=== PATIENT | male | born 1975 | race Caucasian/White ===

== ENCOUNTER 2017-03-06 00:37 | Emergency (ER) | payer OTHER ==
[2017-03-06] MEDS ORDERED: Sodium Chloride 0.9% 10 ML Syringe FLUSH PRN (00:49)
[2017-03-06] MEDS ORDERED: Sodium Chloride 0.9% 2.5 ML Syringe FLUSH PRN (00:49)
[2017-03-06 00:50] VITALS: BP 143/96
[2017-03-06] MEDS ORDERED: Sodium Chloride 0.9% 1,000 ML IV ONE (00:53)
[2017-03-06] MEDS ORDERED: Aspirin 81 MG Tab.Chew PO ONE (00:55)
--- NOTE | 2017-03-06 00:56 | EDM.PDOC ---
ED HPI GENERAL MEDICAL PROBLEM - General Chief Complaint: Chest Pain Stated Complaint: CHEST PAINS Time Seen by Provider: 03/06/17 00:56 - History of Present Illness INITIAL COMMENTS - FREE TEXT/NARRATIVE: HISTORY AND PHYSICAL: History of present illness: Patient 41-year-old white male presents with concern chest pain 3 weeks he denies social sutures breath palpitations diaphoresis nausea vomiting or other concern Review of systems: As per history of present illness and below otherwise all systems reviewed and negative. Past medical history: As per history of present illness and as reviewed below otherwise noncontributory. Surgical history: As per history of present illness and as reviewed below otherwise noncontributory. Social history: No reported history of drug or alcohol abuse. Family history: As per history of present illness and as reviewed below otherwise noncontributory. Physical exam: HEENT: Atraumatic, normocephalic, pupils reactive, negative for conjunctival pallor or scleral icterus, mucous membranes moist, throat clear, neck supple, nontender, trachea midline. Lungs: Clear to auscultation, breath sounds equal bilaterally, chest nontender. Heart: S1S2, regular, negative for clicks, rubs, or JVD. Abdomen: Soft, nondistended, nontender. Negative for masses or hepatosplenomegaly. Negative for costovertebral tenderness. Pelvis: Stable nontender. Genitourinary: Deferred. Rectal: Deferred. Extremities: Atraumatic, negative for cords or calf pain. Neurovascular unremarkable. Neuro: Awake, alert, oriented. Cranial nerves II through XII unremarkable. Cerebellum unremarkable. Motor and sensory unremarkable throughout. Exam nonfocal. Diagnostics: CBC CMP PT/INR troponin BNP chest x-ray EKG Therapeutics: IV O2 monitor Impression: #1 chest pain Definitive disposition and diagnosis as appropriate pending reevaluation and review of above. chest Pain Score (Numeric/FACES): 3 - Related Data Allergies Allergy/AdvReac Type Severity Reaction Status Date / Time No Known Allergies Allergy Verified 03/06/17 00:40 Home Meds: Home Meds . [No Known Home Meds] 11/27/15 [History] Past Medical History - Past Health History Medical/Surgical History: Denies Medical/Surgical History Cardiovascular History: Reports: Hypertension, Other (See Below) Other Cardiovascular History: told begiining of Heart failure in 2011. - Past Surgical History GI Surgical History: Reports: Hernia, Inguinal Social & Family History - Family History Family Medical History: Noncontributory - Tobacco Use Smoking Status *Q: Never Smoker Years of Tobacco use: 16 Packs/Tins Daily: 0.5 Used Tobacco, but Quit: No - Alcohol Use Days Per Week of Alcohol Use: 2 Number of Drinks Per Day: 2 Total Drinks Per Week: 4 - Recreational Drug Use Recreational Drug Use: No ED ROS GENERAL - Review of Systems Review Of Systems: ROS reveals no pertinent complaints other than HPI. ED EXAM, GENERAL - Physical Exam Exam: See Below (See dictation) Course - Vital Signs Last Recorded V/S: Last Vital Signs Temp 37.7 C 03/06/17 00:37 Pulse 94 03/06/17 00:37 Resp 18 03/06/17 00:37 BP 143/96 H 03/06/17 00:37 Pulse Ox 98 03/06/17 00:37 - Orders/Labs/Meds Orders: Active Orders 24 hr Category Date Time Status Cardiac Monitoring [RC] . DIRECTED Care 03/06/17 00:49 Active EKG Documentation Completion [RC] STAT Care 03/06/17 00:49 Active Oxygen Therapy [RC] ASDIRECTED Care 03/06/17 00:49 Active Chest 1V Frontal [CR] Stat Exams 03/06/17 00:49 Ordered B-TYPE NATRIURETIC PEPTIDE,BNP [CHEM] Stat Lab 03/06/17 00:46 Received CBC WITH AUTO DIFF [HEME] Stat Lab 03/06/17 00:46 Received COMPREHENSIVE METABOLIC PN,CMP [CHEM] Stat Lab 03/06/17 00:46 Received INR,PT,PROTHROMBIN TIME [COAG] Stat Lab 03/06/17 00:54 Ordered TROPONIN I [CHEM] Stat Lab 03/06/17 00:46 Received UA W/MICROSCOPIC [URIN] Stat Lab 03/06/17 00:49 Uncollected Sodium Chloride 0.9% [Normal Saline] 1,000 ml Med 03/06/17 00:53 Active IV STAT Sodium Chloride 0.9% [Saline Flush] Med 03/06/17 00:49 Active 10 ml FLUSH ASDIRECTED PRN Sodium Chloride 0.9% [Saline Flush] Med 03/06/17 00:49 Active 2.5 ml FLUSH ASDIRECTED PRN Saline Lock Insert [OM.PC] Stat Oth 03/06/17 00:49 Ordered Medication Orders Sodium Chloride (Normal Saline) 1,000 mls @ 999 mls/hr IV STAT ONE Stop: 03/06/17 01:53 Sodium Chloride (Saline Flush) 10 ml FLUSH ASDIRECTED PRN PRN Reason: Keep Vein Open Sodium Chloride (Saline Flush) 2.5 ml FLUSH ASDIRECTED PRN PRN Reason: Keep Vein Open Meds: Medications Generic Name Dose Route Start Last Admin Trade Name [place] PRN Reason Stop Dose Admin Sodium Chloride 1,000 mls @ 999 mls/hr 03/06/17 00:53 Normal Saline IV 03/06/17 01:53 STAT ONE Sodium Chloride 10 ml 03/06/17 00:49 Saline Flush FLUSH ASDIRECTED PRN Keep Vein Open Sodium Chloride 2.5 ml 03/06/17 00:49 Saline Flush FLUSH ASDIRECTED PRN Keep Vein Open Departure - Departure Time of Disposition: 00:55 Disposition: Home, Self-Care 01 Condition: Good Clinical Impression: Atypical chest pain - Discharge Information Referrals: PCP,None [Primary Care Provider] - Additional Instructions: The following information is given to patients seen in the emergency department who are being discharged to home. This information is to outline your options for follow-up care. We provide all patients seen in our emergency department with a follow-up referral. The need for follow-up, as well as the timing and circumstances, are variable depending upon the specifics of your emergency department visit. If you don't have a primary care physician on staff, we will provide you with a referral. We always advise you to contact your personal physician following an emergency department visit to inform them of the circumstance of the visit and for follow-up with them and/or the need for any referrals to a consulting specialist. The emergency department will also refer you to a specialist when appropriate. This referral assures that you have the opportunity for followup care with a specialist. All of these measure are taken in an effort to provide you with optimal care, which includes your followup. Under all circumstances we always encourage you to contact your private physician who remains a resource for coordinating your care. When calling for followup care, please make the office aware that this follow-up is from your recent emergency room visit. If for any reason you are refused follow-up, please contact the [facility] emergency department at and asked to speak to the emergency department charge nurse. JASMYNE [facility] [address] [place] [id number] Follow-up primary medical doctor and/or clinic above is discussed to return as needed as discussed - My Orders Last 24 Hours: My Active Orders 03/06/17 00:46 B-TYPE NATRIURETIC PEPTIDE,BNP [CHEM] Stat CBC WITH AUTO DIFF [HEME] Stat COMPREHENSIVE METABOLIC PN,CMP [CHEM] Stat TROPONIN I [CHEM] Stat 03/06/17 00:49 Cardiac Monitoring [RC] . DIRECTED EKG Documentation Completion [RC] STAT Oxygen Therapy [RC] ASDIRECTED Chest 1V Frontal [CR] Stat UA W/MICROSCOPIC [URIN] Stat Sodium Chloride 0.9% [Saline Flush] 10 ml FLUSH ASDIRECTED PRN Sodium Chloride 0.9% [Saline Flush] 2.5 ml FLUSH ASDIRECTED PRN Saline Lock Insert [OM.PC] Stat 03/06/17 00:53 Sodium Chloride 0.9% [Normal Saline] 1,000 ml IV STAT 03/06/17 00:54 INR,PT,PROTHROMBIN TIME [COAG] Stat - Assessment/Plan Last 24 Hours: My Active Orders 03/06/17 00:46 B-TYPE NATRIURETIC PEPTIDE,BNP [CHEM] Stat CBC WITH AUTO DIFF [HEME] Stat COMPREHENSIVE METABOLIC PN,CMP [CHEM] Stat TROPONIN I [CHEM] Stat 03/06/17 00:49 Cardiac Monitoring [RC] . DIRECTED EKG Documentation Completion [RC] STAT Oxygen Therapy [RC] ASDIRECTED Chest 1V Frontal [CR] Stat UA W/MICROSCOPIC [URIN] Stat Sodium Chloride 0.9% [Saline Flush] 10 ml FLUSH ASDIRECTED PRN Sodium Chloride 0.9% [Saline Flush] 2.5 ml FLUSH ASDIRECTED PRN Saline Lock Insert [OM.PC] Stat 03/06/17 00:53 Sodium Chloride 0.9% [Normal Saline] 1,000 ml IV STAT 03/06/17 00:54 INR,PT,PROTHROMBIN TIME [COAG] Stat
[2017-03-06 01:18] LABS: CHLORIDE,CL 106 mmol/L (98-110); SODIUM,NA 140 mmol/L (136-146)
--- NOTE | 2017-03-06 15:50 | CR ---
EXAM DATE: 03/06/17 PATIENT'S AGE: 41 Patient: AISHA GARCIA Facility: [place], [place] Site . Site : [id number] Study: XRay Chest [id number]/19/2017 1:08:51 AM Ordering Physician: Dede Richter Final Report: Indication: Chest pain Technique: Chest 1 view Comparison: None Findings/Impression: Cardiovascular and mediastinum: Heart size and vasculature are normal in caliber and appearance. Mediastinum is within normal limits. Lungs and pleural space: Lungs are clear. No sign of infiltrate or mass. No sign of pleural effusion. No pneumothorax. Bones and soft tissues: No significant findings. Dictated by Diana Bradley MD @ Mar 06 2017 1:10AM (Electronic Signature) Report Signed by Proxy. JOSÉ MIGUEL
== END 2017-03-06 02:30 | disposition home or self-care (01) ==
LOC: MW.ED 00:37
DX: R07.89 Other chest pain (principal); I11.0 Hypertensive heart disease with heart failure; I50.9 Heart failure, unspecified
CPT/HCPCS: 36415; 71010; 80053; 81001; 83880; 84484; 85025; 85610; 93005; 96360; 99285; A9270; J7040; 99283

== ENCOUNTER 2024-02-15 11:25 | Emergency (ER) | payer SELFPAY ==
[2024-02-15] MEDS: Sodium Chloride 0.9% 1,000 ML IV ONE ×2 (12:30)
[2024-02-15] MEDS: Sodium Chloride 0.9% 2.5 ML Syringe FLUSH PRN (12:30)
[2024-02-15] MEDS: Sodium Chloride 0.9% 10 ML Syringe FLUSH PRN (12:30)
[2024-02-15 12:42] LABS: HEMATOCRIT 42.5 % (42.0-52.0); HEMOGLOBIN 14.6 g/dL (14.0-18.0); MEAN CORPUSCULAR HEMOGLOBIN 29.3 pg (28.0-32.0); MEAN CORPUSCULAR HGB CONC 34.4 g/dL (32.0-36.0); MEAN CORPUSCULAR VOLUME 85.3 fL (83.0-99.0); MEAN PLATELET VOLUME 8.8 fL (9.4-12.4); PLATELET COUNT,PLT 482 K/uL (150-400); RED BLOOD CELL COUNT 4.98 M/uL (4.52-5.90); WHITE BLOOD CELL COUNT,WBC 9.52 K/uL (3.9-11.3)
[2024-02-15 12:57] LABS: BAND ABSOLUTE MAN 0.29; BAND PERCENT MAN 3 %; LYMPHOCYTES ABSOLUTE MAN 2.76 K/uL (1.00-4.80); LYMPHOCYTES PERCENT MAN 29 % (24-44); SEG NEUTROPHILS ABSOLUTE MAN 4.76 K/uL (1.80-7.70); SEG NEUTROPHILS PERCENT MAN 50 % (41-71)
[2024-02-15 12:58] LABS: BASOPHILS ABSOLUTE MAN 0.19 K/uL (0.00-0.20); BASOPHILS PERCENT MAN 2 % (0-1); EOSINOPHILS ABSOLUTE MAN 0.19 K/uL (0.00-0.45); EOSINOPHILS PERCENT MAN 2 % (0-6); MONOCYTES ABSOLUTE MAN 1.33 K/uL (0.00-0.80); MONOCYTES PERCENT MAN 14 % (0-8)
[2024-02-15 13:13] LABS: A/G RATIO 0.6 (0.9-1.6); BILIRUBIN TOTAL 0.4 mg/dL (0.2-1.0); CALCIUM 9.6 mg/dL (8.5-10.1); CARBON DIOXIDE,CO2 26.8 mmol/L (21.0-32.0); CREATININE 0.8 mg/dL (0.8-1.3); EST CRCL DRUG DOSING (CG) 126.64 mL/min; POTASSIUM,K 3.9 mmol/L (3.5-5.1); PROTEIN TOTAL,TP 7.7 g/dL (6.4-8.2)
[2024-02-15] MEDS: Iopamidol 755 MG/ML 500 ML Multipack Bottle IVPUSH STA (13:43)
[2024-02-15 15:28] VITALS: BP 139/88
[2024-02-15 16:00] VITALS: PULSE 88
== END 2024-02-15 15:59 | disposition home or self-care (01) ==
LOC: MW.ED 11:25
DX: K52.9 Noninfective gastroenteritis and colitis, unspecified (principal); I11.0 Hypertensive heart disease with heart failure; I50.9 Heart failure, unspecified; Z79.899 Other long term (current) drug therapy; Z75.8 Other problems related to medical facilities and other health care
CPT/HCPCS: 36415; 74177; 80053; 83690; 85025; 87324; 96360; 99284; J3490; J7030; Q9967

== ENCOUNTER 2024-03-02 20:17 | Emergency (ER) | payer BC ==
[2024-03-02 20:45] LABS: HEMATOCRIT 38.8 % (42.0-52.0); HEMOGLOBIN 13.3 g/dL (14.0-18.0); MEAN CORPUSCULAR HGB CONC 34.3 g/dL (32.0-36.0); MEAN CORPUSCULAR VOLUME 84.7 fL (83.0-99.0); MEAN PLATELET VOLUME 8.2 fL (9.4-12.4); PLATELET COUNT,PLT 1003 K/uL (150-400); RED BLOOD CELL COUNT 4.58 M/uL (4.52-5.90); WHITE BLOOD CELL COUNT,WBC 12.51 K/uL (3.9-11.3)
[2024-03-02 21:01] LABS: BLOOD UREA NITROGEN,BUN 7 mg/dL (7.0-18.0); CALCIUM 9.1 mg/dL (8.5-10.1); CARBON DIOXIDE,CO2 27.9 mmol/L (21.0-32.0); CHLORIDE,CL 97 mmol/L (98-107); GLUCOSE RANDOM 124 mg/dL (74-106); POTASSIUM,K 4.3 mmol/L (3.5-5.1); SODIUM,NA 133 mmol/L (136-148)
[2024-03-02 21:15] LABS: ESTIMATED GFR 94 mL/min (>60)
[2024-03-02 21:23] LABS: BAND ABSOLUTE MAN 0.13; BAND PERCENT MAN 1 %; BASOPHILS PERCENT MAN 0 % (0-1); EOSINOPHILS PERCENT MAN 0 % (0-6); LYMPHOCYTES ABSOLUTE MAN 2.63 K/uL (1.00-4.80); LYMPHOCYTES PERCENT MAN 21 % (24-44); MONOCYTES ABSOLUTE MAN 2.63 K/uL (0.00-0.80); MONOCYTES PERCENT MAN 21 % (0-8); SEG NEUTROPHILS ABSOLUTE MAN 7.13 K/uL (1.80-7.70); SEG NEUTROPHILS PERCENT MAN 57 % (41-71)
[2024-03-02] MEDS: Sodium Chloride 0.9% 1,000 ML IV ONE (21:59)
[2024-03-02] MEDS: Hydrocortisone Sodium Succinate 100 MG/2 ML SDV IVPUSH ONE (23:07)
[2024-03-02] MEDS: Hydrocortisone Sodium Succinate 250 MG/2 ML SDV IV ONE (23:10)
[2024-03-02 23:52] VITALS: BP 128/75; PULSE 107
== END 2024-03-02 23:51 | disposition home or self-care (01) ==
LOC: MW.ED 20:17
DX: K52.9 Noninfective gastroenteritis and colitis, unspecified (principal); I10 Essential (primary) hypertension; E78.00 Pure hypercholesterolemia, unspecified
CPT/HCPCS: 36415; 71045; 80048; 85025; 86850; 86900; 86901; 96361; 96374; 99283; J1720; J7030

== ENCOUNTER 2024-03-14 15:25 | Emergency (ER) | payer BC ==
[2024-03-14] MEDS ORDERED: Sodium Chloride 0.9% 2.5 ML Syringe FLUSH PRN (15:42)
[2024-03-14] MEDS ORDERED: Sodium Chloride 0.9% 10 ML Syringe FLUSH PRN (15:42)
[2024-03-14 16:14] LABS: BASOPHILS ABSOLUTE AUTO 0.07 K/uL (0.00-0.20); BASOPHILS PERCENT AUTO 0.6 % (0.0-1.0); EOSINOPHILS ABSOLUTE AUTO 0.15 K/uL (0.00-0.45); EOSINOPHILS PERCENT AUTO 1.3 % (0.0-6.0); HEMATOCRIT 36.6 % (42.0-52.0); HEMOGLOBIN 12.3 g/dL (14.0-18.0); IMMATURE GRAN ABSOLUTE AUTO 0.07 K/uL (0.00-0.05); IMMATURE GRAN PERCENT AUTO 0.6 % (0.0-0.4); LYMPHOCYTES ABSOLUTE AUTO 2.66 K/uL (1.00-4.80); LYMPHOCYTES PERCENT AUTO 22.8 % (24.0-44.0); MEAN CORPUSCULAR HEMOGLOBIN 28.8 pg (28.0-32.0); MEAN CORPUSCULAR HGB CONC 33.6 g/dL (32.0-36.0); MEAN CORPUSCULAR VOLUME 85.7 fL (83.0-99.0); MEAN PLATELET VOLUME 8.8 fL (9.4-12.4); MONOCYTES ABSOLUTE AUTO 1.13 K/uL (0.00-0.80); MONOCYTES PERCENT AUTO 9.7 % (0.0-8.0); NEUTROPHILS ABSOLUTE AUTO 7.58 K/uL (1.80-7.70); PLATELET COUNT,PLT 694 K/uL (150-400); RED BLOOD CELL COUNT 4.27 M/uL (4.52-5.90); WHITE BLOOD CELL COUNT,WBC 11.66 K/uL (3.9-11.3)
[2024-03-14 16:20] LABS: INR 1.03 (0.86-1.11)
[2024-03-14] MEDS: Sodium Chloride 0.9% 1,000 ML IV STA (16:37)
[2024-03-14 16:39] LABS: A/G RATIO 0.6 (0.9-1.6); ALBUMIN 2.5 g/dL (3.4-5.0); BILIRUBIN TOTAL 0.3 mg/dL (0.2-1.0); CALCIUM 8.4 mg/dL (8.5-10.1); CREATININE 1.1 mg/dL (0.8-1.3); EST CRCL DRUG DOSING (CG) 92.1 mL/min; POTASSIUM,K 4.1 mmol/L (3.5-5.1); PROTEIN TOTAL,TP 6.4 g/dL (6.4-8.2)
[2024-03-14] MEDS: Hydrocortisone Sodium Succinate 100 MG/2 ML SDV IVPUSH ONE (17:57)
[2024-03-14 18:50] VITALS: BP 122/76; PULSE 96
== END 2024-03-14 19:03 | disposition home or self-care (01) ==
LOC: MW.ED 15:25
DX: K62.5 Hemorrhage of anus and rectum (principal); R00.0 Tachycardia, unspecified; I10 Essential (primary) hypertension; Z79.52 Long term (current) use of systemic steroids; Z75.8 Other problems related to medical facilities and other health care
CPT/HCPCS: 36415; 80053; 85025; 85610; 86850; 86900; 86901; 96361; 96374; 99283; J1720; J7030